=== PATIENT | female | born 1985 | race Caucasian/White ===

== ENCOUNTER → 2024-10-25 | Outpatient (REF) | payer OTHER | LOC: MRI 09:59 | PROVIDERS: ATTEND Family Medicine | DX: G43.909 Migraine, unspecified, not intractable, without status migrainosus (principal) | CPT/HCPCS: 70551 ==

== ENCOUNTER → 2025-03-28 | Outpatient (REF) | payer OTHER | LOC: MAMMO 10:38 | PROVIDERS: ATTEND Family Medicine | DX: Z12.31 Encounter for screening mammogram for malignant neoplasm of breast (principal) | CPT/HCPCS: 77067 ==